=== PATIENT | female | born 1970 | race Caucasian/White ===

== ENCOUNTER 2018-01-17 22:19 | Emergency (ER) | payer OTHER ==
[~2018-01-17] VITALS: Ht 165.1 cm; Wt 71.7 kg
--- NOTE | 2018-01-17 23:20 | RADIOLOGY REPORT ---
EXAMINATION: XR ANKLE, RIGHT CLINICAL INFORMATION: Pain, swelling COMPARISON: None TECHNIQUE: AP, lateral, and mortise views of the right ankle. FINDINGS: Density seen laterally. Although this may be chronic disease to the region and therefore findings may suggest acute fracture superimposed on chronic change. The mortise is intact. IMPRESSION: Findings suggest fracture lateral malleolus. Adjacent soft tissue swelling.
--- NOTE | 2018-01-18 00:39 | ED ANKLE/FOOT INJURY COMPLAINT ---
History of Present Illness General Chief Complaint: Foot or Ankle Injury Stated Complaint: RIGHT ANKLE PAIN Source: patient Exam Limitations: no limitations Vital Signs & Intake/Output Vital Signs & Intake/Output ED Intake and Output 01/19 0000 01/18 1200 Intake Total 0 Output Total Balance 0 Intake, Oral 0 Allergies Coded Allergies: No Known Allergies (01/17/18) Reconcile Medications Ibuprofen 800 MG TABLET 1 TAB PO TID PRN PAIN Triage Note: PT TO TRIAGE C/O R ANKLE PAIN S/P ROLLING R ANKLE CLINICAL REHAB LIAISON. NO OBVIOUS DEFORMITY NOTED. PT WALKING WITH LIMP. ICE PACK APPLIED. PT TOOK 2 ADVIL CLINICAL REHAB LIAISON. Triage Nurses Notes Reviewed? yes Occurred: just prior to arrival Duration: hour(s): (2), constant, continues in ED Timing: single episode today Severity: mild, moderate Severity Numbers: 6 Pain/Injury Location: Right: Ankle. Method of Injury: fall, twisted No Modifying Factors: none Associated Symptoms: swelling LMP (ages 10-50): unknown : No Patient currently breastfeeds: No HPI: 7-year-old female past medical history of hypothyroidism since for evaluation of pain and swelling in her right ankle. Patient states that she was walking when she inverted her ankle causing her to fall. There was no head strike or loss of consciousness no other injuries. She reports pain and swelling to the lateral aspect of the ankle. The pain is worse with weightbearing and she has not been able to put any weight on that ankle since. She denies any pain in the foot no numbness or tingling or knee pain or hip pain. She received Motrin at triage reports an improvement. (Rayo Jones) Past History Travel History Traveled to [place] past 21 day No Medical History Any Pertinent Medical History? see below for history Neurological: NONE EENT: NONE Cardiovascular: NONE Respiratory: NONE Gastrointestinal: NONE Hepatic: NONE Renal: NONE Musculoskeletal: NONE Psychiatric: NONE Endocrine: hypothyroidism Blood Disorders: NONE Cancer(s): NONE GENERAL II FARMWORKER/Reproductive: NONE Surgical History Surgical History: non-contributory Psychosocial History What is your primary language Maltese Tobacco Use: Never used ETOH Use: occasional use Family History Hx Contributory? No (Rayo Jones) Review of Systems Review of Systems Constitutional: Reports: no symptoms. EENTM: Reports: no symptoms. Respiratory: Reports: no symptoms. Cardiovascular: Reports: no symptoms. GI: Reports: no symptoms. Genitourinary: Reports: no symptoms. Musculoskeletal: Reports: joint pain, joint swelling, muscle pain, muscle stiffness. Skin: Reports: no symptoms. Neurological/Psychological: Reports: no symptoms. Hematologic/Endocrine: Reports: no symptoms. Immunologic/Allergic: Reports: no symptoms. All Other Systems: Reviewed and Negative (Rayo Jones) Physical Exam Physical Exam General Appearance: well developed/nourished, no apparent distress, alert, awake Head: atraumatic, normal appearance Eyes: Bilateral: normal appearance, EOMI. Ears, Nose, Throat: hearing grossly normal Neck: normal inspection, supple, full range of motion, no midline tenderness Cardiovascular/Respiratory: no respiratory distress Back: normal inspection, normal range of motion Leg/Knee/Thigh Left: normal range of motion, normal inspection Leg/Knee/Thigh Right: normal range of motion, normal inspection Ankle Left: normal inspection, normal range of motion Ankle Right: evidence of injury, pain, soft tissue tenderness, swelling, tenderness, limited range of motion, there is pain and swelling in the area of the lateral malleolus. Range of motion of the ankle is reduced due to pain. No bruising. No gross deformity. Neurovascular supply intact Foot Left: normal inspection, normal range of motion Foot Right: normal inspection, normal range of motion, no fifth metatarsal tenderness. No pain to palpation of the foot. No swelling neurovascular supply to Neuro/Vascular: normal motor function, normal sensation Tendon: normal tendon function Psychiatric: awake, alert, oriented x 3 Skin: intact, normal color, warm/dry (Rayo Jones) Progress Differential Diagnosis: cellulitis, gout, fracture, dislocation, sprain, contusion, compartmental syndrome Plan of Care: Orders Procedure Date/time Status Durable Medical Equipment 01/18 0101 Active She seen and evaluated. She is here after an inversion injury to her right ankle. Neurovascular supply attack she has pain palpation and swelling around the lateral malleolus. X-rays suggest fracture of the lateral malleolus. Patient was placed into a posterior and sugar tong splint. crutches Rest ice elevation compression. Continue Tylenol or ibuprofen as he for pain. Follow-up with Kael Dong. Discussed return precautions in detail patient agrees plan Diagnostic Imaging: Viewed by Me: Radiology Read. Discussed w/RAD: Radiology Read. Radiology Impression: PATIENT: ABDELRAHMAN BULLOCK PRESENT AGE: 47 PATIENT ACCOUNT NO: [id number] : 72 LOCATION: [facility] ORDERING PHYSICIAN: Roberto Neil DO (TBS) SERVICE DATE: 01/17/18 EXAM TYPE: RAD - XRY-ANKLE 3 OR MORE VIEWS R EXAMINATION: XR ANKLE, RIGHT CLINICAL INFORMATION: Pain, swelling COMPARISON: None TECHNIQUE: AP, lateral, and mortise views of the right ankle. FINDINGS: Density seen laterally. Although this may be chronic disease to the region and therefore findings may suggest acute fracture superimposed on chronic change. The mortise is intact. IMPRESSION: Findings suggest fracture lateral malleolus. Adjacent soft tissue swelling. DICTATED BY: Roberto Delcid MD DATE/TIME DICTATED:01/17/182314 FISHING VESSEL OPERATOR:JOVI DATE/TIME TRANSCRIBED:01/17/182314 CONFIDENTIAL, DO NOT COPY WITHOUT APPROPRIATE AUTHORIZATION. <Electronically signed in Other Vendor System> SIGNED BY: Roberto Delcid MD 01/17/182319 (Rayo Jones) Departure Departure Disposition: HOME OR SELF CARE Condition: Stable Clinical Impression Primary Impression: Ankle fracture, right Qualifiers: Encounter type: initial encounter Fracture type: closed Qualified Code: S82.891A - Other fracture of right lower leg, initial encounter for closed fracture Referrals: Sam DIAZ,Lindsey Petty (PCP/Family) Sudheer Reynolds MD Additional Instructions: Rest, keep the foot elevated, apply ice 15- 20 minutes every few hours. Ibuprofen 800 mg every 8 hours with food as needed for pain. Can also use Tylenol for pain. Make a follow-up appointment with your primary care doctor and orthopedic doctor as soon as possible. Wear splint at all times. Walk with crutches. Return with any concerns. Departure Forms: Customer Survey General Discharge Information Prescriptions: Current Visit Scripts Ibuprofen 1 TAB PO TID PRN PAIN #30 TAB (Rayo Jones) PA/RELAY ADJUSTER Co-Sign Statement Statement: ED Attending supervision documentation- [] I saw and evaluated the patient. I have also reviewed all the pertinent lab results and diagnostic results. I agree with the findings and the plan of care as documented in the PA's/RELAY ADJUSTER's documentation. [x] I have reviewed the ED Record and agree with the PA's/RELAY ADJUSTER's documentation. [] Additions or exceptions (if any) to the PAs/RELAY ADJUSTER's note and plan are summarized below: [] (Bethany DIAZ,Adryan De La Cruz) Procedures Splinting Location: ankle rt Manual Alignment Performed: No Hand-Made Type: orthoglass Splint: sugar-tong, posterior walking Splint Applied By: splint applied by me Pre-Proc Neuro Vasc Exam: normal Post-Proc Neuro Vasc Exam: normal (Valentin LOWE,Rayo)
[2018-01-18] MEDS ORDERED: IBUPROFEN800 M1 PO (01:04)
[2018-01-18 01:17] VITALS: BP 127/84
== END 2018-01-18 01:20 ==
LOC: ERH 22:19
DX: S82.64XA Nondisplaced fracture of lateral malleolus of right fibula, initial encounter for closed fracture (principal); X50.9XXA Other and unspecified overexertion or strenuous movements or postures, initial encounter; Y93.01 Activity, walking, marching and hiking; Y92.9 Unspecified place or not applicable
CPT/HCPCS: 73610-RT